=== PATIENT | male | born 1950 ===

== ENCOUNTER 2017-09-17 15:52 | Outpatient (CLI) | payer OTHER ==
[~2017-09-17 15:52] MED LIST: AVAPRO150 MG; LIPITOR20 MG; LOTREL 5-10 MG1 CAP
== END 2017-09-17 16:12 | disposition home or self-care (01) ==
LOC: RAD 15:52
DX: M17.11 Unilateral primary osteoarthritis, right knee (principal); M17.12 Unilateral primary osteoarthritis, left knee; M94.0 Chondrocostal junction syndrome [Tietze]